=== PATIENT | female | born 1940 | race Caucasian/White ===

== ENCOUNTER 2016-06-01 19:12 | Emergency (ER) | payer MEDICARE, OTHER ==
[2016-06-01] MEDS ORDERED: SODIUM CHLORIDE 0.9% 1,000 ML ONE (19:29)
[2016-06-01 19:57] LABS: ABSOLUTE NEUTROPHIL COUNT 9.6 K/mm3 (1.8-7.7); BASO # 0.1 K/mm3 (0.0-0.2); BASO % 0.4 % (0.2-1.0); EOS # 0.1 (0.0-0.5); EOS % 1.1 % (0.9-2.9); HEMOGLOBIN 13.4 gm/l (12.0-16.0); IMM NEUT # 0.1 K/mm3 (0-0.2); LYMPH % 8.9 % (15-45); MEAN CELL VOLUME 89.9 fl (81.0-99.0); MEAN CORPUSCULAR HEMOGLOBIN 30.1 pg (27.0-31.0); MEAN CORPUSCULAR HGB CONC 33.5 g/dl (33.0-37.0); MEAN PLATELET VOLUME 11.6 fl (7.4-10.4); MONO # 0.5 (0.0-0.8); MONO % 4.6 % (4-12); PLATELET COUNT 200 K/mm3 (130-400); RED CELL DISTRIBUTION WIDTH 12.8 % (11.5-14.5)
[2016-06-01 20:10] LABS: ALB/GLOB RATIO 1.3 (>1.0); ALBUMIN 3.7 gm/dL (3.5-5.7); CALCIUM 9.3 mg/dL (8.6-10.3)
--- NOTE | 2016-06-01 20:27 | CT ---
Name: YISSEL BARRERA Exam: CT head without contrast Comparison: 03-12-15 Clinical history: Headache Technique: Helical CT was performed through the head. Angled axial reconstructions were obtained. Sagittal and coronal reconstructions were obtained as well. No contrast was given. An automated dose reduction technique was used to minimize patient radiation dose. Findings: There is no shift of midline structures. The ventricles are diffusely enlarged and a component of normal pressure hydrocephalus should be considered. Ventricular size is similar to the prior. 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 There is no mass, mass effect or hemorrhage. Cisterns are uneffaced. Posterior fossa is unremarkable. Visualized paranasal sinuses and mastoid air cells are normal. There is no fracture. Impression: 1. 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 Diffusely dilated ventricles similar to the prior. A component of normal pressure hydrocephalus must be considered 3. No acute finding Note: The above report was uploaded to [facility]'s electronic medical records system at 2024 hours.
[2016-06-01 20:32] LABS: URINE BILIRUBIN NEGATIVE (NEGATIVE); URINE BLOOD TRACE (NEGATIVE); URINE GLUCOSE (UA) 2+ (NEGATIVE); URINE LEUKOCYTE ESTERASE NEGATIVE (NEGATIVE); URINE NITRITE NEGATIVE (NEGATIVE); URINE PROTEIN 2+ (NEGATIVE); URINE UROBILINOGEN NORMAL (0-1 mg/dl)
[2016-06-01 20:34] LABS: URINE APPEARANCE SL CLOUDY; URINE COLOR LIGHT YELLOW
[2016-06-01 20:47] LABS: URINE BACTERIA FEW
[2016-06-01] MEDS ORDERED: CEFTRIAXONE 1 GRAM DUPLEX 50 ML IV ONE (21:47)
--- NOTE | 2016-06-02 08:11 | RAD ---
CHEST 2 VIEWS HISTORY: Flulike symptoms. Frontal and lateral chest radiographs dated 06/01/2016. COMPARISON: 02/08/2015 FINDINGS: FOCAL AIRSPACE OPACITY: No gross airspace consolidation. BRONCHOVASCULAR MARKINGS: Coarsened. PLEURAL EFFUSION: None. CARDIOMEDIASTINAL SILHOUETTE: Nonenlarged. Dual lead pacer is noted. PNEUMOTHORAX: None identified. OSSEOUS STRUCTURES: No grossly destructive lesions. Bridging osteophytes of the thoracic spine. Degenerative change of the shoulder girdle. IMPRESSION: No gross airspace consolidation. Coarsened bronchovascular markings, which can be seen in the setting of bronchitis, atypical/viral infection, or central airways disease. Dual-lead pacer in place.
== END 2016-06-01 22:34 | disposition home or self-care (01) ==
LOC: ED 19:12
DX: N39.0 Urinary tract infection, site not specified (principal); R11.10 Vomiting, unspecified; I10 Essential (primary) hypertension; E03.9 Hypothyroidism, unspecified; E11.9 Type 2 diabetes mellitus without complications; Z79.4 Long term (current) use of insulin
CPT/HCPCS: 85025; 87086; 80053; 84484; 81001; 71020; 70450; 99284 ×2; 96361 ×2; 96365; 93005; J7030; J0696

== ENCOUNTER 2016-06-07 16:26 | Emergency (ER) | payer MEDICARE, OTHER ==
--- NOTE | 2016-06-07 18:23 | CT ---
CT ABDOMEN AND PELVIS WITHOUT CONTRAST HISTORY: Ground-level fall. TECHNIQUE: No intravenous contrast administered; contiguous axial images were acquired from the lung bases to the ischial tuberosities. Oral contrast was not administered. COMPARISON: 05/05/2016 FINDINGS: LUNG BASES: Small left pleural effusion. Minor atelectatic change bronchial wall thickening. No basilar pneumothorax. Evidence of prior pacer placement. LIVER: No focal mass effect. SPLEEN: No focal mass effect. PANCREAS: No focal mass effect. ADRENAL GLANDS: No mass effect. KIDNEYS: Redemonstration of coarse calcification posteriorly at the left kidney measuring approximately centimeter-sized no gross collecting system dilatation. Stable prominence of the distal ureters without associated ureteral calculi. GALLBLADDER: Surgically absent. BOWEL: Moderate fecal loading. Limited assessment of the distal colon due to decompression. No abnormal small bowel dilatation. APPENDIX: Grossly unremarkable appearance. PELVIC ORGANS: Status post hysterectomy, no adnexal mass effect. FREE FLUID: No gross free fluid identified. ABDOMINOPELVIC LYMPH NODES: No abnormally enlarged lymph nodes identified. ABDOMINAL AORTA: Moderate atherosclerotic calcifications. No aneurysmal dilatation. OSSEOUS STRUCTURES: No vertebral compression deformity. Findings of thoracic lumbar disc degeneration. Canal stenosis at the L4-5 level. ANTERIOR ABDOMINAL WALL: Minor skin thickening of the lower pannus, correlate for direct injury panniculitis. IMPRESSION: 1. No free fluid or obvious solid organ injury limits of this noncontrast study. Small left pleural effusion without basilar pneumothorax. 2. Thoracic lumbar spondylosis with canal stenosis at L4-5. 3. Stable left renal calcification. Evidence of aortic atherosclerotic disease. 4. Moderately extensive fecal loading with nonobstructive appearance of bowel. Normal appendix. 5. Status post hysterectomy and cholecystectomy. 6. Minor skin thickening of the pannus anteriorly, please correlate with exam findings. Results were electronically transmitted to the electronic medical record at 05/30/2016 at 1819 hours.
== END 2016-06-07 20:08 | disposition home or self-care (01) ==
LOC: ED 16:26
DX: S20.211A Contusion of right front wall of thorax, initial encounter (principal); S30.0XXA Contusion of lower back and pelvis, initial encounter; W18.30XA Fall on same level, unspecified, initial encounter; E03.9 Hypothyroidism, unspecified; E78.00 Pure hypercholesterolemia, unspecified; E11.9 Type 2 diabetes mellitus without complications; I10 Essential (primary) hypertension; Z86.73 Personal history of transient ischemic attack (TIA), and cerebral infarction without residual deficits; I49.9 Cardiac arrhythmia, unspecified; Z79.4 Long term (current) use of insulin; Z79.899 Other long term (current) drug therapy

== ENCOUNTER 2016-09-04 17:36 | Emergency (ER) | payer MEDICARE, OTHER ==
--- NOTE | 2016-09-04 20:57 | CT ---
EXAMINATION:CT SCAN HEAD W/O CONTRAST. CLINICAL INDICATION: Ground-level fall. Head trauma COMPARISON: Exam dated 06/01/2016 TECHNIQUE: A Cranial CT was performed using a [employer] multislice CT scanner. Axial images were acquired from just above the vertex through the skull base. 4 mm stacked axial, sagittal, and coronal reconstructed images were reviewed. FINDINGS: The CSF-containing spaces remain prominent throughout. Prominent lateral ventricles are similar to the prior study. Right frontal parietal encephalomalacia is very similar to the prior study. No increased intercranial hemorrhage or mass effect is identified. There is diminished attenuation Of the Howard-white matter tracts which are similar to the prior study as well. No acute intracranial hemorrhage or extra-axial fluid collections are identified.:There is no mass effect or midline shift. The posterior fossa is unremarkable. The cerebellar pontine angle cisterns are normal and symmetric. The osseous structures are intact. The paranasal sinuses are unremarkable. The orbits and retrobulbar regions are unremarkable.:The mastoid sinuses are clear. The scalp and adjacent soft tissues are unremarkable. IMPRESSION: 1. No acute intracranial abnormality is identified. No skull fracture is seen. 2. Stable encephalomalacia right frontal parietal distribution. 3. Stable global diffuse atrophy and microvascular ischemic changes.
--- NOTE | 2016-09-04 20:59 | CT ---
EXAMINATION: Cervical spine CT without contrast. CLINICAL INDICATION: Ground-level fall. Neck pain. COMPARISON:None TECHNIQUE: [employer] 64 slice scanner was utilized. The examination is diagnostic. Axial images were acquired from the posterior fossa to the T2 vertebral body. 2 mm stacked images were acquired in the axial, sagittal, and coronal planes. Bone and soft tissue windows were utilized. FINDINGS: There is normal alignment of the cervical vertebral bodies. The vertebral body heights and intervertebral disc spaces exhibit mild narrowing at multiple segments. No displaced fracture is identified. The facets and spinous processes are normal. The paravertebral soft tissues exhibit no effacement of the fat/soft tissue planes. Carotid vascular calcifications are noted. The visualized segments of the lung apices are unremarkable. IMPRESSION: No displaced cervical fracture. There is spondylosis. Findings were communicated by [facility] to the emergency department at: 1916 hours 09/04/2016
== END 2016-09-04 20:02 | disposition home or self-care (01) ==
LOC: ED 17:36
DX: S09.90XA Unspecified injury of head, initial encounter (principal); M47.812 Spondylosis without myelopathy or radiculopathy, cervical region; R11.0 Nausea; I10 Essential (primary) hypertension; E03.9 Hypothyroidism, unspecified; E11.9 Type 2 diabetes mellitus without complications; Z79.4 Long term (current) use of insulin; Z86.73 Personal history of transient ischemic attack (TIA), and cerebral infarction without residual deficits; Z95.0 Presence of cardiac pacemaker; W18.30XA Fall on same level, unspecified, initial encounter; Y92.9 Unspecified place or not applicable